=== PATIENT | male | born 1980 | race African-American/Black ===

== ENCOUNTER 2017-05-27 15:06 | Emergency (ER) | payer OTHER ==
[~2017-05-27] VITALS: Ht 170.2 cm; Wt 88.6 kg
[~2017-05-27 15:06] MED LIST: CLOTR1CR TOP; MINI1CAP PO; TRAZ50TA11 PO; VITA500046 PO; ZOLO100T PO; ZOLO25TA PO
[2017-05-27] MEDS ORDERED: SERT-138 (15:12)
[2017-05-27] MEDS ORDERED: QUET1TAB7 (15:12)
[2017-05-27] MEDS ORDERED: BUPR150T3 (15:12)
[2017-05-27] MEDS ORDERED: ACETAMINOPHEN 325 MG TAB PO ONE (16:15)
[2017-05-27] MEDS ORDERED: ONDANSETRON 4 MG ORAL DISINTEGRATING TAB (S0181) PO ONE (16:15)
[2017-05-27] MEDS ORDERED: ZOFR4TAB3 PO (17:31)
--- NOTE | 2017-05-27 17:31 | REP ---
ACUTE ABDOMINAL SERIES: 05/27/2017. Clinical history: Diffuse abdominal pain. Findings: There were no prior studies. PA chest: Lungs somewhat hypoinflated, but without infiltrate or effusion. Heart size magnified by low level of inflation. No pulmonary edema, vascular redistribution or other acute finding. No free air. Bones intact. Flat upright abdomen: Gas pattern is nonspecific. Most of the small bowel loops are fluid-filled. There are a few mildly prominent small bowel loops in the right upper quadrant. No dilated colon. There are no air-fluid levels, masses or free air. Multiple pelvic phleboliths are noted. Impression: 1. Nonspecific gas pattern. Mildly distended air-filled bowel loops without air fluid levels in the right midabdomen and right upper quadrant suggesting focal ileus or gastroenteritis. No obstruction, air-fluid level, mass or free air. 2. No dilated or distended colon. Bones intact. No abnormal calcifications with multiple pelvic phleboliths seen. 3. Hypoinflated chest without acute finding. Signed by Eduardo Benitez MD 05/28/2017 04:45 P
[2017-05-27 17:48] VITALS: BP 137/78
== END 2017-05-27 17:49 | disposition home or self-care (01) ==
LOC: M ED 15:06
DX: K52.9 Noninfective gastroenteritis and colitis, unspecified (principal); G47.33 Obstructive sleep apnea (adult) (pediatric); F33.9 Major depressive disorder, recurrent, unspecified; Z87.820 Personal history of traumatic brain injury; Z79.899 Other long term (current) drug therapy